=== PATIENT | male | born 1955 ===

== ENCOUNTER 2023-03-04 09:38 | Emergency (ER) | payer BC ==
[2023-03-04 09:59] LABS: BASOPHILS ABSOLUTE AUTO 0.1 K/uL (0.0-0.1); BASOPHILS PERCENT AUTO 0.5 % (0.0-1.5); EOSINOPHILS ABSOLUTE AUTO 0.3 K/uL (0.0-0.7); HEMATOCRIT 46.1 % (38.0-50.0); HEMOGLOBIN 15.2 g/dL (13.0-17.0); LYMPHOCYTES ABSOLUTE AUTO 0.9 K/uL (0.6-2.4); LYMPHOCYTES PERCENT AUTO 8.6 % (16.0-40.0); MEAN CORPUSCULAR HEMOGLOBIN 30.1 pg (27.0-32.0); MEAN CORPUSCULAR VOLUME 91.3 fL (80.0-98.0); MONOCYTES ABSOLUTE AUTO 0.5 K/uL (0.0-0.8); MONOCYTES PERCENT AUTO 5.2 % (0.0-15.0); NEUTROPHILS ABSOLUTE AUTO 8.6 K/uL (1.4-5.7); NEUTROPHILS PERCENT AUTO 82.7 % (48.0-80.0); NRBC ABSOLUTE 0 K/uL; PLATELET COUNT,PLT 218 K/uL (150-400); RED BLOOD CELL COUNT 5.05 M/uL (4.50-5.90); WHITE BLOOD CELL COUNT,WBC 10.34 K/uL (4.0-11.0)
[2023-03-04] MEDS ORDERED: Morphine 4 MG/ML Syringe IVPUSH ONE (10:01)
[2023-03-04] MEDS ORDERED: Ondansetron 4 MG/2 ML SDV IVPUSH ONE (10:01)
[2023-03-04] MEDS ORDERED: Ketorolac 30 MG/ML SDV IVPUSH ONE (10:01)
[2023-03-04] MEDS ORDERED: Sodium Chloride 0.9% 1,000 ML IV ONE (10:01)
[2023-03-04 10:02] LABS: APPEARANCE,URINE CLEAR; BILIRUBIN,URINE NEGATIVE (NEGATIVE); COLOR,URINE YELLOW; GLUCOSE,URINE NEGATIVE (NEGATIVE); KETONES,URINE NEGATIVE (NEGATIVE); LEUKOCYTE ESTERASE,URINE NEGATIVE (NEGATIVE); NITRITE,URINE NEGATIVE (NEGATIVE); OCCULT BLOOD,URINE TRACE-INTACT (NEGATIVE); PROTEIN,URINE NEGATIVE (NEGATIVE); UROBILINOGEN,URINE 0.2 EU/dL (<2.0)
[2023-03-04 10:14] LABS: RBC,URINE 0-2 (0-2/HPF); WBC,URINE 0-2 (0-5/HPF)
[2023-03-04 10:41] LABS: A/G RATIO 1.1 (0.9-1.6); ALBUMIN 3.8 g/dL (3.4-5.0); BILIRUBIN TOTAL 0.2 mg/dL (0.2-1.0); CALCIUM 9.4 mg/dL (8.5-10.1); CARBON DIOXIDE,CO2 24.2 mmol/L (21.0-32.0); CREATININE 1.5 mg/dL (0.8-1.3); EST CRCL DRUG DOSING (CG) 54.75 mL/min; POTASSIUM,K 4.5 mmol/L (3.5-5.1); PROTEIN TOTAL,TP 7.2 g/dL (6.4-8.2)
[2023-03-04] MEDS ORDERED: Iopamidol 755 Mg/ML 100 ML Bottle IVPUSH ONE (10:57)
[2023-03-04 11:06] LABS: LACTIC ACID 0.7 mmol/L (0.4-2.0)
== END 2023-03-04 12:20 | disposition home or self-care (01) ==
LOC: MW.ED 09:38
DX: N13.2 Hydronephrosis with renal and ureteral calculous obstruction (principal)
CPT/HCPCS: 36415; 74177; 80053; 81001; 83605; 83690; 85025; 96361; 96374; 96375; 99284; J1885; J2270; J2405; J7030; Q9967